=== PATIENT | male | born 1995 | race American Indian/Alaskan Native ===

== ENCOUNTER 2016-10-14 10:32 | Emergency (ER) | payer OTHER ==
[2016-10-14 11:04] VITALS: BP 120/81
[2016-10-14] MEDS ORDERED: MOTRIN PO ONE (12:44)
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
== END 2016-10-14 12:49 | disposition home or self-care (01) ==
LOC: ED 10:32
DX: M25.511 Pain in right shoulder (principal); V89.2XXA Person injured in unspecified motor-vehicle accident, traffic, initial encounter; Y93.89 Activity, other specified; Y99.9 Unspecified external cause status; Y92.410 Unspecified street and highway as the place of occurrence of the external cause
CPT/HCPCS: 99283